=== PATIENT | female | born 1955 | race African-American/Black ===

== ENCOUNTER 2020-10-15 14:03 | Emergency (ER) | payer BC, SELFPAY ==
--- NOTE | ~2020-10-15 | US_ITS ---
EXAMINATION: US VENOUS ULTRASOUND WITH DOPPLER LOWER EXTREMITY, RIGHT CLINICAL INFORMATION: Calf pain. Evaluate for DVT. COMPARISON: None TECHNIQUE: Ultrasound of the deep veins is performed from the hip to the calf with compression sonography and color and pulse Doppler assessment. Spectral analysis with color-flow imaging is performed. FINDINGS: There is normal venous compression and respiratory variation and augmented flow. The visualized common femoral vein, superficial femoral vein, profunda femoral vein, popliteal vein, and the trifurcation region shows no evidence of deep venous thrombosis. There is no significant popliteal fossa cyst. If the patient's symptoms persist, followup ultrasound in 5 days 7 days might be of value to exclude proximal propagation from a non-visualized calf vein. US/US venous duplex LE RT IMPRESSION: No DVT demonstrated in the right lower extremity.
[2020-10-15 14:07] VITALS: BP 107/70; PULSE 78; RESP 16; TEMP 36.6; O2SAT 100; BMI 21.7
--- NOTE | 2020-10-15 16:44 | ED_ITS ---
HPI - Extremity Problem General Chief complaint: Extremity Problem Stated complaint: rt swollen leg Time Seen by Provider: 10/15/20 15:05 History of Present Illness HPI Narrative: Patient felt a pop in her right lower leg and noticed some black and blue and some pain in her right calf, this happened today Related Data Allergies Allergy/AdvReac Type Severity Reaction Status Date / Time amoxicillin AdvReac Nausea Verified 10/15/20 14:10 Review of Systems Review of Systems: Positive for right lower leg pain Negatives are no fever no chills no dizziness no weakness no fainting no feeling faint no headache no neck pain no chest pain no shortness of breath no abdominal pain no nausea vomiting no other extremity pain or swelling no skin rash no numbness weakness or tingling Yes all other systems are reviewed and are negative PMFSH Past Medical History Source: nursing notes reviewed Social History Social History Advance Directives: Yes Advance Directives Information Provided: No Advance Directives on File: No Physical Exam Vital Signs: Vital Signs: Last Vital Signs Temp 98 F 10/15/20 14:07 Pulse 78 10/15/20 14:07 Resp 16 10/15/20 14:07 BP 107/70 10/15/20 14:07 Pulse Ox 100 10/15/20 14:07 Body Mass Index 21.7 General appearance no acute distress Head is normocephalic atraumatic Neck is supple Respiratory no distress Chest clear to auscultation bilateral Heart no murmur Extremities full range of motion x4 The right lower leg had tenderness in the calf area and behind the knee the knee had full range of motion without swelling or discomfort, neurovascular intact distal, skin was intact Course Course Course Narrative: Ultrasound was done and was negative for DVT, no acute findings Patient exam is most likely consistent with a muscle tear or possibly a painful varicose vein She is comfortable ambulates easily no sign of infection no sign of blood clot pulses were normal and patient is discharged to follow with primary doctor Discharge Plan Discharge Clinical Impression: Leg pain, right Patient Disposition: Home, Self-Care Additional Instructions: Ultrasound was negative and did not show a DVT or any urgent problem The pain may be a minor muscle tear or perhaps a problem with of varicose sup erficial vein You could apply a warm cloth,, you can use Tylenol or Motrin if needed Follow with primary doctor, especially if pain continues or if you develop any swelling In some cases if problem does not resolve in 1 week you may need a repeat ultrasound to confirm that no blood clot is missed Interventions: ED Discharge Assessment Last Done: 10/15/20 16:57 Discharge Date/Time: 10/15/20 16:58
== END 2020-10-15 16:58 | disposition home or self-care (01) ==
PROVIDERS: Emergency Provider Emergency Medicine
DX: M79.661 Pain in right lower leg (principal)
CPT/HCPCS: 93971; 99283; 99284